=== PATIENT | female | born 1995 | race Caucasian/White ===

== ENCOUNTER → 2016-11-30 01:55 | Observation (INO) ==
[2016-11-29 21:35] LABS: Bilirubin,Urine Negative (Negative); Blood,Urine Negative (Negative); Clarity,Urine Cloudy (Clear); Color,Urine Yellow (Yellow); Glucose,Urine (UA) Normal (Normal); Ketones,Urine >=160 mg/dL (Negative); Leukocyte Esterase,Urine Small (Negative); Nitrite,Urine Negative (Negative); PH,Urine 6.5 pH Units (5.0-8.0); Protein,Urine Trace mg/dL (Neg-Trace); Specific Gravity,Urine 1.019 (1.010-1.025); Urobilinogen,Urine Normal (Normal)
[2016-11-29 21:36] LABS: Bacteria,Urine Few per hpf (None-Few); Hyaline Casts,Urine None Seen per lpf (None-Few); Squamous Epithelial Cell,Urine Many per lpf (None-Few); WBC,Urine 15-30 per hpf (0-3)
[2016-11-29 21:43] LABS: Amphetamine Screen,Urine Negative ng/mL (Cutoff=1000); Barbiturate Screen,Urine Negative ng/mL (Cutoff=200); Benzodiazepines Screen,Urine Negative ng/mL (Cutoff=200); Cannabinoid Screen,Urine Negative ng/mL (Cutoff = 50); Cocaine Screen,Urine Negative ng/mL (Cutoff= 300); Opiate Screen,Urine Negative ng/mL (Cutoff=300); Phencyclidine Screen,Urine Negative ng/mL (Cutoff=25)
[2016-11-29 21:51] LABS: Yeast,Urine Moderate per hpf (None Seen)
[2016-11-29 22:21] LABS: Basophils % 0.2 %; Eosinophils % 0.1 %; Hematocrit 33.2 % (35.3-44.9); Hemoglobin 11.6 g/dL (11.5-15.4); Immature Granulocytes % 0.9 % (0-4); Immature Platelets 2.9 % (1.1-6.1); Lymphocytes # 1.5 K/mcL (0.6-4.6); Lymphocytes % 6.6 %; Mean Corpuscular HGB Conc 34.9 g/dL (31.6-35.5); Mean Corpuscular Hemoglobin 31.8 pg (28.0-33.3); Mean Platelet Volume 9.6 fL (9.4-12.4); Monocytes # 1.8 K/mcL (0.0-1.3); Monocytes % 8.1 %; Neutrophils # 18.5 K/mcL (1.6-8.9); Platelet Count 249 K/mcL (140-400); Red Blood Count 3.65 M/mcL (3.82-4.97); Segmented Neutrophils % 84.1 %
[2016-11-29 22:33] LABS: BUN/Creatinine Ratio 8 (6-26); Calcium 8.9 mg/dL (8.6-10.8); Carbon Dioxide 20 mEq/L (19-29); Chloride 104 mEq/L (98-109); Glucose 78 mg/dL (70-99); Osmolality,Calculated 276 (280-300); Potassium 3.4 mEq/L (3.5-4.5); Sodium 135 mEq/L (136-145); eGFR For African Americans > 60 (> 60); eGFR For Non-African Americans > 60 (> 60)
[2016-11-29 22:34] LABS: Blood Urea Nitrogen 5 mg/dL (7-20)
--- NOTE | 2016-11-30 00:04 | OB/GYN History & Physical ---
Date of Encounter: 11/30/16 Time of Encounter: 23:57 Assessment and Plan (1) 30 weeks gestation of Current visit: Yes Status: Acute NST reassuring for GA (2) Abdominal pain affecting , antepartum Current visit: Yes Status: Acute Severe, intermittent, generalized, abdominal pain. Irregular UC on toco. SVE fingertip x 2 exams. UA without blood. Small leukocytes. 160 ketones. CBC with elevated WBC's 22. No abdominal tenderness to palpation. No CVAT. US completed, results pending. Frequency of pain decreased after IV fluid bolus and procardia. DDx: contractions, gastroenteritis, kidney stone, ovarian torsion, appendicitis Plan: Considering pain has decreased in frequency since fluid bolus and procardia, uterine contractions is most likely cause. Given elevated WBC and severity of pain, will observe throughout the night. If any cervical change is noted will consider [facility] and transfer to [facility]. History of Present Illness Chief complaint: abdominal pain HPI: Ms. Seth is a 21 year old female presenting at 30 weeks with c/o severe, intermittent, abdominal pain. She reports that it feels like someone is squeezing her entire abdomen every few minutes and the pain lasts about a minute when it comes. She also reports "a few" episodes of diarrhea today and some nausea. She was seen in ED 2 days ago for an ear infection for which she has had 2 rounds of antibiotics, a CT scan, and vicodin for pain. [facility] confirms Vicodin 5/325 x 12 tablets. She denies urinary sx, vaginal discharge, itching or burning, LOF, VB, flank pain, fever, chills, or other complaints. Past Med Surg Social Fam HX - Past Medical History Medical history: no medical history Psychiatric history: no psych history - Past Surgical History Surgical History: no surgical history - Social History Smoking Status: Current every day smoker Packs per day: 0.5 Smokeless Tobacco Status: No Alcohol use: none Drug use: none - Family History Mother Living Status: Still Living Hx Family Cardiac Disorders: No Hx Family Respiratory Disorders: No Hx Family Cancer: No Hx Family GI Disorders: No Hx Family Genitourinary Disorders: No Hx Family Endocrine Disorder: No Hx Family Musculoskeletal Disorders: No Hx Family Neuromuscular Disorders: No Hx Family Neurologic Disorders: No Hx Family HEENT Disorders: No Hx Family Autoimmune Disorders: No Hx Family Reproductive Disorders: No Hx Family Psychosocial Disorders: No Hx Family Medical Disorders: No Obstetrical History - Pregnancies : 1 Medications and Allergies Azithromycin [Zithromax] 250 mg PO Q24H #6 tablet 11/25/16 [Rx] Leo/Poly/HC *EAR* SUSP [Cortisporin *EAR* SUSP] 4 drop LEFT EAR QID #1 drops.susp 11/25/16 [Rx] HYDROcodone/Acet 5/325 mg [Bluejacket 5-325 mg] 1 tab PO Q6H PRN #12 tab 11/27/16 [Rx ] HYDROcodone/Acet 5/325 mg [Bluejacket 5-325 mg] 1 tab PO Q6H PRN #12 tab 11/27/16 [Rx ] Ondansetron ODT [Zofran ODT] 4 mg SL Q8HR #12 tab.rapdis 11/27/16 [Rx] Ondansetron ODT [Zofran ODT] 4 mg SL Q8HR #12 tab.rapdis 11/27/16 [Rx] Allergies No Known Allergies Allergy (Verified 11/25/16 22:28) Review of System OB - Constitutional Constitutional ROS IM: no chills, no fever(s) - Respiratory Respiratory: no cough, no dyspnea - Gastrointestinal Gastrointestinal: abdominal pain, diarrhea, nausea - Genitourinary Genitourinary: no difficulty urinating, no dysuria, no flank pain, no genital pruritis, no urinary frequency, no urinary urgency, no vaginal discharge Exam - Constitutional Constitutional: well developed, well nourished, severe distress - HEENT HEENT: Mucus Membranes Moist - Lungs Respiratory exam: CTAB - Cardiovascular Cardiovascular exam: RRR, tachycardia (HR 100-110) - Abdomen Abdomen: Present: gravid, non tender. Absent: diffuse tenderness, guarding noted - Extremities Extremities exam: normal inspection - Vulva Vulva: bilateral: normal - Vagina Vagina: Present: normal moisture - Cervix Dilation: 0 (ft) - Uterus Uterus exam: Absent: tender - Anus/Rectum Anus/Rectum: Present: normal perianal skin - Comments Comments: negative CVAT, Pt intermittently screaming out in pain Results Result Diagrams: 11/29/16 22:05 11/29/16 22:05 Abnormal lab results WBC 22.0 K/mcL (4.3-11.1) H D 11/29/16 22:05 RBC 3.65 M/mcL (3.82-4.97) L 11/29/16 22:05 Hct 33.2 % (35.3-44.9) L 11/29/16 22:05 Neutrophils # 18.5 K/mcL (1.6-8.9) H 11/29/16 22:05 Monocytes # 1.8 K/mcL (0.0-1.3) H 11/29/16 22:05 Sodium 135 mEq/L (136-145) L 11/29/16 22:05 Potassium 3.4 mEq/L (3.5-4.5) L 11/29/16 22:05 BUN 5 mg/dL (7-20) L 11/29/16 22:05 Calculated Osmolality 276 (280-300) L 11/29/16 22:05 Urine Clarity Cloudy (Clear) A 11/29/16 21:20 Urine Ketones >=160 mg/dL (Negative) H 11/29/16 21:20 Ur Leukocyte Esterase Small (Negative) H 11/29/16 21:20 Urine Microscopic RBC 3-5 per hpf (0-3) H 11/29/16 21:20 Urine Microscopic WBC 15-30 per hpf (0-3) H 11/29/16 21:20 Ur Squamous Epith Cells Many per lpf (None-Few) H 11/29/16 21:20 Urine Yeast Moderate per hpf (None Seen) H 11/29/16 21:20 Ur Culture Indicated? YES (NO) A 11/29/16 21:20 All other labs normal. - VTE Reasons for not Prescribing Prophylaxis: Treatment not Indicated - Low risk for VTE
[~2016-11-30 01:55] MED LIST: *HR* Promethazine 25 MG/ML VIAL IVP PRN; Famotidine 20 MG/2 ML VIAL IVP PRN; NIFEdipine 10 MG CAPSULE PO ONE; Ondansetron 4 MG/2 ML VIAL IVP PRN; Ringers Solution, Lactated 1,000 ML IVC ONE; Ringers Solution, Lactated 1,000 ML IVC SCH; Ringers Solution, Lactated 1,000 ML ONE; Terbutaline 1 MG/ML VIAL SQ ONE
== END | disposition left against medical advice (07) ==
LOC: 1NENULAB
PROVIDERS: ADMIT Student in an Organized Health Care Education/Training Program; ATTEND Student in an Organized Health Care Education/Training Program

== ENCOUNTER → 2017-01-19 07:43 | Observation (INO) ==
[2017-01-19 07:34] LABS: Amphetamine Screen,Urine Negative ng/mL (Cutoff=1000); Barbiturate Screen,Urine Negative ng/mL (Cutoff=200); Benzodiazepines Screen,Urine Negative ng/mL (Cutoff=200); Cannabinoid Screen,Urine Negative ng/mL (Cutoff = 50); Cocaine Screen,Urine Negative ng/mL (Cutoff= 300); Opiate Screen,Urine Negative ng/mL (Cutoff=300); Phencyclidine Screen,Urine Negative ng/mL (Cutoff=25)
--- NOTE | 2017-01-19 08:26 | OB/GYN Progress Note ---
Date of Encounter: 01/19/17 Time of Encounter: 08:24 - Assessment and Plan (1) 37 weeks gestation of Status: Acute (2) False labor Status: Acute Remains fingertip dilated on serial cervical exams. Discharged home with education for hydration and when to return to triage. Subjective - Subjective Interval history: Pt with reports of contractions. Took castor oil last night and then has had an onset of abdominal pain and contractions. Reports good movement, denies vaginal bleeding or leaking of fluid. Antepartum ROS: movement normal, contractions, no loss of fluid, no vaginal bleeding Objective - Exam FHR: auscultation normal FHR comments: Baseline 120 Abdomen: Present: normal appearance, soft, gravid Uterus: Present: normal Cervical dilation: Fingertip
== END | disposition home or self-care (01) ==
LOC: 1NENULAB
PROVIDERS: ADMIT Obstetrics & Gynecology; ATTEND Obstetrics & Gynecology

== ENCOUNTER 2017-02-01 10:13 | Inpatient (IN) ==
[~2017-02-01 10:13] MED LIST changes: +*HR* Nalbuphine 20 MG/ML AMPUL IVP PRN; -*HR* Promethazine 25 MG/ML VIAL IVP PRN; -NIFEdipine 10 MG CAPSULE PO ONE; +Naloxone 0.4 MG/ML INJ IVP PRN; -Ringers Solution, Lactated 1,000 ML IVC ONE; -Ringers Solution, Lactated 1,000 ML IVC SCH; -Ringers Solution, Lactated 1,000 ML ONE; -Terbutaline 1 MG/ML VIAL SQ ONE
[2017-02-01] MEDS ORDERED: Ringers Solution, Lactated 1,000 ML IVC SCH ×2 (10:15→15:45)
[2017-02-01] MEDS ORDERED: *HR* Nalbuphine 20 MG/ML AMPUL ONE (10:19)
[2017-02-01 10:28] LABS: Basophils # 0.1 K/mcL (0.0-0.2); Basophils % 0.5 %; Eosinophils # 0.1 K/mcL (0.0-0.6); Eosinophils % 0.4 %; Hematocrit 34.6 % (35.3-44.9); Hemoglobin 11.9 g/dL (11.5-15.4); Immature Granulocytes % 0.4 % (0-4); Lymphocytes # 2.6 K/mcL (0.6-4.6); Lymphocytes % 15.6 %; Mean Corpuscular HGB Conc 34.4 g/dL (31.6-35.5); Mean Corpuscular Hemoglobin 31.1 pg (28.0-33.3); Mean Corpuscular Volume 90.3 fL (83.0-100.0); Monocytes # 1.2 K/mcL (0.0-1.3); Monocytes % 6.9 %; Neutrophils # 12.7 K/mcL (1.6-8.9); Platelet Count 248 K/mcL (140-400); Red Blood Count 3.83 M/mcL (3.82-4.97); Red Cell Distribution Width 13.3 % (11.5-14.5); Segmented Neutrophils % 76.2 %
[2017-02-01] MEDS ORDERED: *HR* FentaNYL (PF) 100 MCG/2 ML VIAL EP ONE (11:21)
[2017-02-01] MEDS ORDERED: EPHEDrine 50 MG/ML VIAL IVP PRN (11:21)
[2017-02-01] MEDS ORDERED: Naloxone 0.4 MG/ML INJ IVP PRN ×2 (11:21→20:21)
[2017-02-01] MEDS ORDERED: Bupivacaine-MPF 0.25% 10 ML VIAL EP ONE (11:21)
--- NOTE | 2017-02-01 11:24 | Anesthesia Evaluation PreOp ---
Date of Encounter: 02/01/17 Time of Encounter: 11:22 - Past History Planned Operation: ZULEMA Cardiac History: Denies any Significant Hx Pulmonary History: Smoker, Pack/yr (5pk/yr) MARGIN TRIMMER History: Denies Any Significant HX Other Medical History: Denies Any Significant HX Anesthesia History: No Prior Anesthetic Complications : Yes Alcohol Use: none Drug use: none Medications and Allergies No Known Home Drugs 01/19/17 [History] 3 Allergy/AdvReac Type Severity Reaction Status Date / Time No Known Allergies Allergy Verified 02/01/17 10:56 - Meds/Allergy Pre-op Review Medications Reviewed: Yes Allergies Reviewed: Yes Beta Blockers on Current Med List: No Anesthesia Results - Labs 02/01/17 10:10 Anesthesia Exam Height: 5'5" Weight: 73.1kg NPO (# of Hours): 4 Pain Scale: 10 (with contractions as stated by patient) Pain Scale Used: Numeric (1 - 10) - HEENT Pupil (Motor): Pupils equal Mallampati: II Teeth: Normal Oral Opening: Greater than 3 - MARGIN TRIMMER LOC: Oriented MARGIN TRIMMER Motor: Normal RUE, Normal LUE, Normal RLE, Normal LLE, Normal Face MARGIN TRIMMER Sensory: Normal: RUE, LUE, RLE, LLE, Face - Cardiac Rhythm: Regular Murmur: None JVD: No Carotid Bruit: No - Pulmonary Breath Sounds: bilateral Clear Respiratory Effort: Symmetrical Anesthesia Assess/Plan ASA Score: 2 Modified Erna Scale for Level of Consciousness: Cooperative, oriented, and tranquil Anesthetic Plan: Regional Autologous Blood: No Monitoring Plan: Standard Monitors Recovery Plan: Other
[2017-02-01] MEDS ORDERED: Epidural Premix (fent/bupiv) 110 ML EP SCH (11:30)
--- NOTE | 2017-02-01 11:34 | Anesthesia Progress Note ---
Date of Encounter: 02/01/17 Time of Encounter: 11:10 Anesthesia Note - Note Note: Pt requesting epidural at dilation of 1cm. Spoke with patient during preoperative assessment regarding optimal window of epidural placement to aid in prevention of potential complications. Pt stated she wanted epidural placement now regardless of potential complication. Pt signed consent knowledgeable of this information. 02/01/17 11:29 Reason for Cancellation: Other
[2017-02-01] MEDS ORDERED: Epidural Premix (fent/bupiv) 110 ML EP ONE (11:35)
[2017-02-01] MEDS ORDERED: *HR* FentaNYL (PF) 100 MCG/2 ML VIAL ONE (11:36)
[2017-02-01] MEDS ORDERED: Bupivacaine-MPF 0.25% 10 ML VIAL ONE ×2 (11:36→11:38)
--- NOTE | 2017-02-01 11:57 | OB/GYN History & Physical ---
Date of Encounter: 02/01/17 Time of Encounter: 11:55 Assessment and Plan (1) 39 weeks gestation of Current visit: Yes Status: Acute (2) Uterine contractions Current visit: Yes Status: Acute Admit to labor and delivery Nubain and epidural as desired GBS negative Cytotec no cervical change Anticipate History of Present Illness HPI: Ms. Seth is a 21 year old female 39+2 weeks gestation presents to labor and delivery by squad with complaints of contractions. Patient states contractions began earlier this morning became intolerable called ambulance for transport to hospital. uncomplicated reports good movement and complains of slight vaginal bleeding earlier when going to the bathroom. Denies leaking of fluid. Labs: O+, rubella immune, GBS negative, all other serologies negative Past Med Surg Social Fam HX - Past Medical History Medical history: no medical history Psychiatric history: no psych history - Past Surgical History Surgical History: no surgical history, other - Social History Smoking Status: Current every day smoker Smokeless Tobacco Status: No Alcohol use: none Drug use: none - Family History Mother History Unknown: Yes Living Status: Still Living Hx Family Cardiac Disorders: No Hx Family Respiratory Disorders: No Hx Family Cancer: No Hx Family GI Disorders: No Hx Family Endocrine Disorder: No Hx Family Neuromuscular Disorders: No Hx Family Neurologic Disorders: No Hx Family HEENT Disorders: No Hx Family Autoimmune Disorders: No Obstetrical History - Pregnancies : 1 Para: 0 Term: 0 : 0 Ab's: 0 Livin Medications and Allergies No Known Home Drugs 01/19/17 [History] 3 Allergy/AdvReac Type Severity Reaction Status Date / Time No Known Allergies Allergy Verified 02/01/17 10:56 Exam - Vital Signs Vital signs: Initial Vital Signs Temp Pulse Resp BP 97.6 F 71 18 122/81 02/01/17 10:45 02/01/17 10:45 02/01/17 10:45 02/01/17 10:45 - Constitutional Constitutional: well developed, well nourished, no acute distress, average body habitus - Neck Neck exam: full ROM - Lungs Respiratory exam: CTAB - Cardiovascular Cardiovascular exam: RRR - Abdomen Abdomen: Present: bowel sounds normal, gravid, non tender - Extremities Extremities exam: normal capillary refill, normal inspection - Cervix Dilation: 1 Effacement: 100 Station: -1 - Uterus Uterus exam: Present: normal size, normal contour Results Result Diagrams: 02/01/17 10:10 Abnormal lab results WBC 16.7 K/mcL (4.3-11.1) H 02/01/17 10:10 Hct 34.6 % (35.3-44.9) L 02/01/17 10:10 Neutrophils # 12.7 K/mcL (1.6-8.9) H 02/01/17 10:10 All other labs normal.
--- NOTE | 2017-02-01 12:21 | Anesthesia Procedures ---
Date of Encounter: 02/01/17 Time of Encounter: 11:44 Procedures: Anesthesia - Epidural/Spinal Patient ID/Chart reviewed: Yes Patient examined: Yes OB Eval: Gestational age: 39 OB Eval: : 1 OB Eval: Hx Para: 0 OB Eval: Dilated at (cm): 1 OB Eval: Contractions: Non-stressed pattern Consent Obtained: Yes Supplemental Oxygen: None/Room Air Site Prep: Aseptic Technique, Sterile prep and drape, Povidone-Iodine 1% Patient position: upright Local Anesthetic: Lidocaine 1% Amount of Local Anesthetic used: 3 Touhy Needle Gauge: 18 Touhy Needle Depth (cm): 6 Catheter Depth at Skin (cm): 15 Test Dose (1.5% Lido + Epi): Volume given (mls): 3 Test Dose Result: Negative Loading Dose: 0.25% Marcaine (mls): 10 Loading Dose: Fentanyl (mcg): 100 Loading Dose Administered: Thru Catheter Infusion Med: 0.125% Bupivacaine w/ 2 mcg/ml Fentanyl Infusion Rate (mls/hr): [address]: Tegaderm, Tape Interspace Used: L4-L5 Loss of Resistance (NORM): Yes Blood: No CSF: No Paresthesia: No Procedure: ZULEMA placed 1st pass in upright position without any immediate noted complications. VSS throughout. FHT 120s throughout Vitals + FHT's: 1144 BP 126/89 P 93 R 20 1210 BP 118/69 R 16 P 71
--- NOTE | 2017-02-01 12:45 | OB Labor Progress Note ---
Date of Encounter: 02/01/17 Time of Encounter: 12:43 Labor Progress Note - Subjective Subjective: Pt now resting comfortable with epidural - Cervix Cervix: 5/100/-1 - Heart Tones Heart Tones: 115/moderate/+accel Discussed with Dr. Martinez concern for variabilty pattern. Dr. Martinez reviewed tracing feels it is moderate variability. - [place]: 2-4 minutes - Interventions Interventions: SROM during exam for thick meconium - Plan Plan: Making cervical change Anticipate . Alert nursery to meconium
[2017-02-01 14:07] LABS: Amphetamine Screen,Urine Negative ng/mL (Cutoff=1000); Barbiturate Screen,Urine Negative ng/mL (Cutoff=200); Benzodiazepines Screen,Urine Negative ng/mL (Cutoff=200); Cannabinoid Screen,Urine Negative ng/mL (Cutoff = 50); Cocaine Screen,Urine Negative ng/mL (Cutoff= 300); Opiate Screen,Urine Negative ng/mL (Cutoff=300); Phencyclidine Screen,Urine Negative ng/mL (Cutoff=25)
[2017-02-01] MEDS ORDERED: Terbutaline 1 MG/ML VIAL SQ ONE (14:10)
[2017-02-01] MEDS ORDERED: Ringers Solution, Lactated 1,000 ML ONE ×2 (14:22→14:57)
[2017-02-01] MEDS ORDERED: CeFAZolin Pre 2,000 MG/100 ML 2,000 MG/100 ML BAG IVPB ONE (14:25)
[2017-02-01] MEDS ORDERED: Metoclopramide 10 MG/2 ML VIAL IVP ONE (14:25)
[2017-02-01] MEDS ORDERED: Chloroprocaine/PF 20 ML VIAL INFILT ONE (14:27)
[2017-02-01] MEDS ORDERED: Ondansetron 4 MG/2 ML VIAL ONE (14:36)
[2017-02-01] MEDS ORDERED: *HR* Phenylephrine 10 MG/ML VIAL ONE (14:44)
[2017-02-01] MEDS ORDERED: *HR* Oxytocin 10 UNIT/ML VIAL IM ONE (14:55)
[2017-02-01] MEDS ORDERED: Ketamine *HR* 500 MG/10 ML MDV ONE (15:00)
[2017-02-01] MEDS ORDERED: *HR* Midazolam HCl 2 MG/2 ML VIAL ONE (15:01)
[2017-02-01] MEDS ORDERED: *HR* Morphine Sulfate/PF 5 MG/10 ML AMPUL ONE (15:03)
[2017-02-01] MEDS ORDERED: *HR* Promethazine 25 MG/ML VIAL IVP PRN (15:36)
[2017-02-01] MEDS ORDERED: Ondansetron 4 MG/2 ML VIAL IVP ONE (15:36)
[2017-02-01] MEDS ORDERED: *HR* Meperidine 25 MG/ML SYRINGE IVP PRN (15:36)
[2017-02-01] MEDS ORDERED: Oxytocin 20 units/ LR 1000 mL 20 UNIT/1,000 ML BAG IVC ONE (16:35)
[2017-02-01] MEDS: *HR* HYDROmorphone (PF) 1 MG/ML SYRINGE IVP PRN ×4 (16:51→18:36)
--- NOTE | 2017-02-01 17:37 | Anesthesia Evaluation Post Op ---
Date of Encounter: 02/01/17 Time of Encounter: 17:35 - Vital Signs Vital Signs: BP 123/70 R 16 P 78 Spo2 98 - Lungs Lungs: Clear Ascult./Percussion - Airway Airway: Non-obstructed - Cardiovascular Regular Rate - Mental Status Mental Status: Alert & Oriented, Answers Appropriately - Pain Pain Scale: 4 Pain Scale used: Numeric (1 - 10) - Nausea Vomiting Nausea Vomiting: Not Present - Hydration Hydration: NPO, Lane catheter - Discharge PostOp Status: Transfer Patient to floor
--- NOTE | 2017-02-01 17:39 | OB/GYN Procedure Note ---
Section - Date of procedure: 02/01/17 Preop diagnosis: category 2 FHT tracing Post-op diagnosis: same Procedure: primary low transverse Surgeon: Mikayla Martinez Estimated blood loss (cc): 600 Tax Consultant: Kkoi Mcintyre [employer] Can[employer] Fabricator: Km Sanchez Anesthesia Type: Epidural section complications: none Disposition: L&D Recovery Room Specimens: Cord segment, Cord gasses - Infant (s) Infant A Infant Delivery Date: 02/01/17 Infant Delivery Time: 14:58 Presentation: vertex Gender: Male Viability: Viable Pounds: 7 Ounces: 0 Gram Weight: 3.18 kg at 1 minute: 8 at 5 minutes: 9 Specimens collected: cord blood, venous cord gases, arterial cord gases (7.26 pH ) Placenta: spontaneous, partial extraction Cord: 3 umbilical vessels - Narrative Narrative: Patient had already been taken to the OR for category 2 heart rate tracing which resolved. She then had another decel with return to baseline at 6 cm. Spoke to patient who had meconium stained fluid and remote from complete dilation. Verbal consent to proceed with prep for section. She was then prepped and draped in normal sterile fashion in the dorsal supine position. Timeout was then performed. Antibiotics were given at room time. SCDs are on and active. Pfannenstiel skin incision is then made and carried through to underlying layer of fascia with the Bovie. The fascia was then incised in the midline and incision extended laterally with the Elliott scissors. The fascia was tented up and dissected off the rectus muscles sharply. The rectus muscles were in the midline and the peritoneum was tented up and entered sharply with the Metzenbaum scissors. The peritoneal incision was then extended bluntly. The bladder blade was then inserted. A low transverse uterine incision was then made. The head was brought to the incision and the was delivered using fundal pressure. There was no nuchal cord. Cord was clamped and cut. was handed to waiting nursery staff. Placenta delivered spontaneously complete and intact with a three-vessel cord. The uterus was cleared of all clots and debris using moist laparotomy sponge. The uterine incision was then closed using 0 Vicryl in a running locked fashion. A second layer of the same suture was used to obtain excellent hemostasis. The abdomen was then cleared of all clots and debris using copious irrigation. A piece of Intercede was placed over the uterine incision and over the anterior uterine serosa. The fascial incision was then closed using 0 Vicryl in a running fashion. The skin was closed using 4-0 Vicryl in a subcuticular fashion. Steri-Strips and sterile dressing are then placed. Mother and taken to recovery in stable condition.
[2017-02-01] MEDS ORDERED: Oxytocin 20 units/ LR 1000 mL 20 UNIT/1,000 ML BAG IVC SCH ×2 (20:21)
[2017-02-01] MEDS ORDERED: *HR* Morphine 2 MG/ML SYRINGE IVP PRN (20:21)
[2017-02-01] MEDS ORDERED: Measles/Mumps/Rubella Vacc 0.5 ML VIAL SQ ONE (20:21)
[2017-02-01] MEDS ORDERED: Sennosides 8.6 MG TABLET PO PRN (20:21)
[2017-02-01] MEDS ORDERED: *HR* HYDROmorphone (PF) 1 MG/ML SYRINGE IVP PRN (20:21)
[2017-02-01] MEDS ORDERED: Metoclopramide 10 MG/2 ML VIAL IVP PRN (20:21)
[2017-02-01] MEDS ORDERED: Ondansetron 4 MG/2 ML VIAL IVP PRN ×2 (20:21)
[2017-02-01] MEDS ORDERED: Acetaminophen 325 MG TABLET PO PRN (20:21)
[2017-02-01] MEDS: *HR* OxyCODONE/APAP 5/325 TABLET PO PRN (23:35)
[2017-02-02 04:51] LABS: Basophils % 0.3 %; Eosinophils % 0.2 %; Hematocrit 24.7 % (35.3-44.9); Immature Granulocytes % 0.6 % (0-4); Lymphocytes # 1.5 K/mcL (0.6-4.6); Lymphocytes % 12.3 %; Mean Corpuscular Hemoglobin 30.5 pg (28.0-33.3); Mean Corpuscular Volume 89.8 fL (83.0-100.0); Mean Platelet Volume 9.6 fL (9.4-12.4); Monocytes # 0.8 K/mcL (0.0-1.3); Monocytes % 6.6 %; Neutrophils # 9.6 K/mcL (1.6-8.9); Platelet Count 181 K/mcL (140-400); Red Blood Count 2.75 M/mcL (3.82-4.97); Red Cell Distribution Width 13.3 % (11.5-14.5)
[2017-02-02 04:52] LABS: Hemoglobin 8.4 g/dL (11.5-15.4)
[2017-02-02] MEDS: cephALEXin 500 MG CAPSULE PO SCH ×4 (06:32→21:23)
[2017-02-02] MEDS: Ibuprofen 600 MG TABLET PO PRN ×3 (06:36→21:23)
[2017-02-02] MEDS: *HR* OxyCODONE/APAP 5/325 TABLET PO PRN ×4 (06:36→21:23)
[2017-02-02] MEDS: Azithromycin 250 MG TABLET PO SCH (08:10)
[2017-02-02] MEDS: Prenatal Vit/FA 1 EACH TABLET PO SCH (08:10)
--- NOTE | 2017-02-02 08:53 | OB/GYN Progress Note ---
Date of Encounter: 02/02/17 Time of Encounter: 08:51 - Assessment and Plan (1) Status post primary low transverse section Current Visit: Yes Status: Acute Routine /postop care Anticipate discharge tomorrow. (2) anemia Current Visit: Yes Status: Acute Increase Ferrous Sulfate to bid. Subjective - Subjective Principal diagnosis: Status post primary c/s Interval history: Pt sitting up in bed style. States she feels well. Reports light bleeding , denies nausea & vomiting. Patient caring appropriately for infant. Reports some spasms while emptying bladder. Instructed to empty bladder every 2 hours to prevent over distention. Patient reports: appetite normal, voiding normally, pain well controlled, ambulating normally : doing well, bottle feeding Objective - Vital Signs Latest vital signs: Vital Signs Temp Pulse Pulse Resp BP Pulse Ox 02/02/17 03:15 97.7 F 85 16 113/71 98 02/01/17 23:20 98.7 F 79 79 14 109/68 02/01/17 20:00 90 90 15 100 02/01/17 19:35 98.2 F 88 14 110/70 97 02/01/17 19:30 98.6 F 89 79 16 120/76 98 02/01/17 19:00 98.6 F 89 89 16 118/70 97 02/01/17 18:30 80 14 02/01/17 10:45 97.6 F 71 18 122/81 Intake and Output 02/01/17 02/02/17 02/02/17 23:59 07:59 15:59 Intake Total 240 / 240 Output Total 1050 / 1050 1150 / 1150 400 / 400 Balance -1050 / -1050 -910 / -910 -400 / -400 Intake: Oral 240 / 240 Output: Urine 400 / 400 Catheter 1050 / 1050 1150 / 1150 Other: Stool Characteristics Normal for Patient Weight 72.5 kg 71.804 kg Patient Weight 02/02/17 23:59 Weight 71.804 kg - Exam Lungs: bilateral: normal Chest: Normal S1, Normal S2 Extremities: Present: normal Abdomen: Present: normal appearance, soft Incision: Present: dressed (Dressing dry and intact) Uterus: Present: normal, firm Fundal Height: 1 (u/1) - Labs Labs: Laboratory Results - last 24 hr 10/18/17 10/18/17 10/19/17 10:10 12:45 04:38 WBC 16.7 H 12.0 H RBC 3.83 2.75 L Hgb 11.9 8.4 L D Hct 34.6 L 24.7 L MCV 90.3 89.8 MCH 31.1 30.5 MCHC 34.4 34.0 RDW 13.3 13.3 Plt Count 248 181 MPV 10.0 9.6 Immature Gran % 0.4 0.6 Seg Neutrophils % 76.2 80.0 Lymphocytes % 15.6 12.3 Monocytes % 6.9 6.6 Eosinophils % 0.4 0.2 Basophils % 0.5 0.3 Neutrophils # 12.7 H 9.6 H Lymphocytes # 2.6 1.5 Monocytes # 1.2 0.8 Eosinophils # 0.1 0.0 Basophils # 0.1 0.0 Urine Opiates Screen Negative Ur Barbiturates Screen Negative Ur Phencyclidine Scrn Negative Ur Amphetamines Screen Negative U Benzodiazepines Scrn Negative Urine Cocaine Screen Negative U Marijuana (THC) Screen Negative
[2017-02-02] MEDS: Simethicone 80 MG TAB.CHEW PO PRN (15:28)
[2017-02-03] MEDS: Ibuprofen 600 MG TABLET PO PRN (04:21)
[2017-02-03] MEDS: *HR* OxyCODONE/APAP 5/325 TABLET PO PRN (04:21)
[2017-02-03] MEDS: Simethicone 80 MG TAB.CHEW PO PRN (07:55)
[2017-02-03] MEDS: cephALEXin 500 MG CAPSULE PO SCH (07:55)
[2017-02-03] MEDS: Prenatal Vit/FA 1 EACH TABLET PO SCH (07:55)
[2017-02-03] MEDS: Azithromycin 250 MG TABLET PO SCH (07:55)
--- NOTE | 2017-02-03 08:11 | Discharge Summary ---
Date of Encounter: 02/03/17 Time of Encounter: 07:55 - Discharge Diagnosis (1) Status post Priority: Primary Status: Acute Comments: Doing well s/p CS day 2. Pain is well controlled Bottle feeding VSS Lochia is light and w/o clots. Tolerating regular diet, voiding and passing flatus without difficulty. Discharge home today. (2) 39 weeks gestation of Priority: Secondary Status: Resolved (3) anemia Priority: Primary Status: Acute Comments: VSS, Asymptomatic - Discharge Medications Prescriptions: Ibuprofen [Motrin] 600 mg PO Q6HR PRN #60 tablet PRN Reason: Cramping OxyCODONE/APAP 5/325 [Percocet 5/325 MG] 1 each PO Q6HR PRN #20 tablet PRN Reason: Moderate pain 4-6 Azithromycin [Zithromax] 500 mg PO DAILY #3 tablet cephALEXin [Keflex] 500 mg PO TID #15 capsule Docusate [Colace] 100 mg PO BID #30 capsule Ferrous Sulfate 325 mg PO BID #60 tablet Vit/FA 1 each PO DAILY #30 tablet Home Medications: Azithromycin [Zithromax] 500 mg PO DAILY #3 tablet 02/03/17 [Rx] Docusate [Colace] 100 mg PO BID #30 capsule 02/03/17 [Rx] Ferrous Sulfate 325 mg PO BID #60 tablet 02/03/17 [Rx] Ibuprofen [Motrin] 600 mg PO Q6HR PRN #60 tablet 02/03/17 [Rx] OxyCODONE/APAP 5/325 [Percocet 5/325 MG] 1 each PO Q6HR PRN #20 tablet 02/03/17 [Rx] Vit/FA 1 each PO DAILY #30 tablet 02/03/17 [Rx] cephALEXin [Keflex] 500 mg PO TID #15 capsule 02/03/17 [Rx] Allergies/Adverse Reactions: 3 Allergy/AdvReac Type Severity Reaction Status Date / Time No Known Allergies Allergy Verified 02/01/17 10:56 Data Procedures and tests throughout hospitalization: Laboratory Tests 02/01/17 02/01/17 02/02/17 10:10 12:45 04:38 WBC 16.7 H 12.0 H RBC 3.83 2.75 L Hgb 11.9 8.4 L D Hct 34.6 L 24.7 L MCV 90.3 89.8 MCH 31.1 30.5 MCHC 34.4 34.0 RDW 13.3 13.3 Plt Count 248 181 MPV 10.0 9.6 Immature Gran % 0.4 0.6 Seg Neutrophils % 76.2 80.0 Lymphocytes % 15.6 12.3 Monocytes % 6.9 6.6 Eosinophils % 0.4 0.2 Basophils % 0.5 0.3 Neutrophils # 12.7 H 9.6 H Lymphocytes # 2.6 1.5 Monocytes # 1.2 0.8 Eosinophils # 0.1 0.0 Basophils # 0.1 0.0 Urine Opiates Screen Negative Ur Barbiturates Screen Negative Ur Phencyclidine Scrn Negative Ur Amphetamines Screen Negative U Benzodiazepines Scrn Negative Urine Cocaine Screen Negative U Marijuana (THC) Screen Negative Date of admission: 02/01/17 10:13 Primary care physician: PCP NONE Consults: 02/01/17 20:21 Consult to [facility] ([facility]&C) [CONS] Routine Reason For Exam: Reason for SW Consult: please evaluate Discharging clinician: Arnaud Arreola Anticipated date of discharge: 02/03/17 - Patient Status Disposition: Home, Self-Care Condition: Good Functional capacity at discharge: independent ambulation Overall status at discharge: patient is progressing back to baseline - Discharge Instructions Follow Up With: NONE,PCP [Primary Care Provider] - Additional Instructions: Perineal Care: Always wipe front to back Change your pad frequently Use your geovani bottle with warm water and spray front to back Do not douche, use tampons, have sexual intercourse or put anything in your vagina for 4-6 weeks after delivery Bleeding: Vaginal bleeding can last up to 6 weeks Your menstrual period may return as early as 6 weeks after you are discharged from the hospital [place]/Stitches Care: Vaginal Delivery Vaginal stitches will dissolve within 4-6 weeks Follow perineal care instructions Care Stitches will dissolve on their own If you have enrico, they will need to be removed in the doctors office within 5-7 days. You may shower with stitches or enrico Drip plan or soapy water over the incision to clean. Pat dry gently with a clean towel. Make sure you completely dry under the skin folds DO NOT USE powders, lotions, rubbing alcohol or hydrogen peroxide on or around your incision. This will slow your wound healing It is normal to have soreness, burning, tingling, itchiness and/or numbness as your incision heals Activity: Rest frequently Do not lift anything heavier than a gallon of milk, up to 10-15 pounds No driving for 1-2 weeks for Vaginal delivery No driving for 2-4 weeks for delivery Take stairs slowly, one at a time Gradually increase your daily activity until you are back to your normal routine Do not exercise until you have had your follow-up appointment Bathing: Take a shower daily Do not take a tub bath for the first 4 weeks Diet: Drink plenty of water and fruit juices Eat a well-balanced diet with foods high in fiber such as fruits and vegetables Depression: Your hormones have a major impact on your feelings and emotions. Hormone imbalance may cause changes in your mood, creating unfamiliar thoughts and actions. Support is available to help you understand and cope with these feelings and mood changes. If you answer yes to any of the following questions, please call your health care provider: Are you having trouble sleeping? Are you feeling isolated? Have you lost your appetite? Are you having thoughts of hurting yourself or others? WARNING SIGNS: Heavy bleeding from the vagina (blood is bright red and soaks a sanitary pad in an hour or less.) Passing a blood clot larger than your fist Discharge from the vagina that has a bad odor Temperature over 100.4 F, or if you feel cold and have chills An episiotomy site that is warm, swollen or oozing. Use a mirror if needed Urination (pee) that is painful, very red and swollen or leaking fluid An incision that is painful, very red and swollen and leaking fluid An incision that has come open Breasts that are painful or full with flu like symptoms Redness, warmth or swelling in the calf of your leg Trouble breathing, dizziness, visual disturbance or faintness *Notify your health care provider immediately or go to the nearest Emergency Room if you experience any of the above signs.* To contact the nurses station 24 hours a day, For non-urgent, routine questions, please call the office at - Diet and Activity Activity: resume usual activities as tolerated Diet: regular diet Hospital Course Reason for admission: active labor Delivery: section Episiotomy: none Laceration: none Other procedures: none complications: none Discharge diagnosis: IUP at term delivered [place] baby: male Hospital course: Ms. Seth is a 21 year old female that presented at 39+2 weeks gestation presents to labor and delivery by squad with complaints of contractions. Patient states contractions began earlier this morning became intolerable called ambulance for transport to hospital. Patient had already been taken to the OR for category 2 heart rate tracing which resolved. She then had another decel with return to baseline at 6 cm. Spoke to patient who had meconium stained fluid and remote from complete dilation. Verbal consent to proceed with prep for section. She was then prepped and draped in normal sterile fashion in the dorsal supine position. Timeout was then performed. Antibiotics were given at room time. SCDs are on and active. Pfannenstiel skin incision is then made and carried through to underlying layer of fascia with the Bovie. The fascia was then incised in the midline and incision extended laterally with the Elliott scissors. The fascia was tented up and dissected off the rectus muscles sharply. The rectus muscles were in the midline and the peritoneum was tented up and entered sharply with the Metzenbaum scissors. The peritoneal incision was then extended bluntly. The bladder blade was then inserted. A low transverse uterine incision was then made. The infant head was brought to the incision and the was delivered using fundal pressure. There was no nuchal cord. Cord was clamped and cut. Infant was handed to waiting nursery staff. Placenta delivered spontaneously complete and intact with a three-vessel cord. The uterus was cleared of all clots and debris using moist laparotomy sponge. The uterine incision was then closed using 0 Vicryl in a running locked fashion. A second layer of the same suture was used to obtain excellent hemostasis. The abdomen was then cleared of all clots and debris using copious irrigation. A piece of Intercede was placed over the uterine incision and over the anterior uterine serosa. The fascial incision was then closed using 0 Vicryl in a running fashion. The skin was closed using 4-0 Vicryl in a subcuticular fashion. Steri-Strips and sterile dressing are then placed. Mother and taken to recovery in stable condition. When seen today, patient says that she is in good mood and the baby is doing fine. She says she is bottle feeding the baby as a preference. The benefits of breast feeding were discussed with the patient, but she was intent on bottle feeding. She says her vaginal bleeding is light, but has remained the same since the procedure. She admits to minor abdominal discomfort. She denies any fever, nausea, vomiting, headaches, vision changes, lihgt-headedness, dizziness , chest pain, or shortness of breath. Patient will continue her course of azithromycin for a total course of 5 days and keflex for a total course of 7 days. She has a follow-up appointment with Dr. Martinez on 02/17/17 - Date of procedure: 02/01/17 Preop diagnosis: category 2 FHT tracing Post-op diagnosis: same Procedure: primary low transverse Surgeon: Mikayla Martinez Estimated blood loss (cc): 600 Forensic Social Worker: Koki Mcintyre Director Of Property Management: Km Sanchez Anesthesia Type: Epidural section complications: none Disposition: L&D Recovery Room Specimens: Cord segment, Cord gasses - Infant (s) Infant A Delivery Date: 02/01/17 Delivery Time: 14:58 Presentation: vertex Gender: Male Viability: Viable Pounds: 7 Ounces: 0 Gram Weight: 3.18 kg at 1 minute: 8 at 5 minutes: 9 Specimens collected: cord blood, venous cord gases, arterial cord gases (7.26 pH ) Placenta: spontaneous, partial extraction Cord: 3 umbilical vessels Time Attestation: Total time spent providing and/or coordinating discharge services: Time Spent: Less than 30 minutes - VTE Documentation of Mechanical Device: Intermittent pneumatic compression device - Attending Attestation I examined this patient and my medical decision-making was reviewed with the Resident Physician. I agree with the documented findings, disposition and treatment plan as described. Daquan Bruce CNM Exam - Constitutional Vitals: Temp Pulse Resp BP Pulse Ox 98.5 F 107 17 118/68 97 02/02/17 19:46 02/02/17 19:46 02/02/17 19:46 02/02/17 19:46 02/02/17 19:46 General appearance IM: A&O X 3, pleasant, no acute distress, answers questions appropriately - Respiratory Respiratory exam: Present: CTAB - Cardiovascular Cardiovascular exam IM: Present: RRR, +S1, +S2 - GI/Abdominal GI/Abdominal exam IM: normal bowel sounds, soft Incision: normal, dry, intact - Uterine Tone: Firm - Extremities Exam Extremities exam IM: Present: full ROM, normal capillary refill, normal inspection, radial pulses palpable and symmetrical. Absent: pedal edema - Neurological Exam Neurological exam: reflexes normal
[2017-02-03 08:24] VITALS: BP 114/61
== END 2017-02-03 13:13 | disposition home or self-care (01) | DRG 540 ==
LOC: 1NENULAB → 1NENUOBS 19:35
PROVIDERS: ADMIT Obstetrics & Gynecology; ATTEND Obstetrics & Gynecology

== ENCOUNTER 2018-12-03 16:46 | Inpatient (IN) ==
[2018-12-03 17:26] LABS: Bilirubin,Urine Negative (Negative); Blood,Urine Negative (Negative); Clarity,Urine Clear (Clear); Color,Urine Yellow (Yellow); Glucose,Urine (UA) Normal (Normal); Ketones,Urine Negative (Negative); Leukocyte Esterase,Urine Negative (Negative); Nitrite,Urine Negative (Negative); PH,Urine 6.5 pH Units (5.0-8.0); Protein,Urine Trace mg/dL (Neg-Trace); Specific Gravity,Urine 1.023 (1.010-1.025); Urobilinogen,Urine Normal (Normal)
[2018-12-03 17:36] LABS: Amphetamine Screen,Urine Negative ng/mL (Cutoff=1000); Barbiturate Screen,Urine Negative ng/mL (Cutoff=200); Benzodiazepines Screen,Urine Negative ng/mL (Cutoff=200); Cannabinoid Screen,Urine Negative ng/mL (Cutoff = 50); Cocaine Screen,Urine Negative ng/mL (Cutoff= 300); Opiate Screen,Urine Negative ng/mL (Cutoff=300); Phencyclidine Screen,Urine Negative ng/mL (Cutoff=25)
[2018-12-03 18:03] LABS: Basophils # 0.1 K/mcL (0.0-0.2); Basophils % 0.7 %; Eosinophils % 0.3 %; Hematocrit 43.4 % (35.3-44.9); Hemoglobin 13.9 g/dL (11.5-15.4); Immature Granulocytes % 0.3 % (0-4); Lymphocytes # 2.2 K/mcL (0.6-4.6); Lymphocytes % 19.1 %; Mean Corpuscular Hemoglobin 27.1 pg (28.0-33.3); Mean Corpuscular Volume 84.8 fL (83.0-100.0); Monocytes # 0.7 K/mcL (0.0-1.3); Monocytes % 6.1 %; Neutrophils # 8.3 K/mcL (1.6-8.9); Platelet Count 361 K/mcL (140-400); Red Blood Count 5.12 M/mcL (3.82-4.97); Red Cell Distribution Width 14.4 % (11.5-14.5); Segmented Neutrophils % 73.5 %; White Blood Count 11.3 K/mcL (4.3-11.1)
[2018-12-03 18:16] LABS: Acetaminophen < 10 mcg/mL (10-20); BUN/Creatinine Ratio 20 (6-26); Blood Urea Nitrogen 13 mg/dL (6-20); Calcium 9.7 mg/dL (8.6-10.3); Carbon Dioxide 26 mEq/L (23-29); Chloride 106 mEq/L (98-107); Ethanol < 10 mg/dL (Less than 10); Glucose 130 mg/dL (70-105); Osmolality,Calculated 288 (280-300); Potassium 3.7 mEq/L (3.5-5.1); Salicylate < 2.5 mg/dL (15.0-30.0); Sodium 138 mEq/L (136-145); eGFR For African Americans > 60 (> 60); eGFR For Non-African Americans > 60 (> 60)
[2018-12-03 18:29] LABS: Thyroid Stimulating Hormone 0.997 mcIU/mL (0.340-5.600)
[2018-12-03] MEDS ORDERED: Ibuprofen 400 MG TABLET PO PRN (20:56)
[2018-12-03] MEDS ORDERED: Haloperidol Lactate 5 MG/ML VIAL IM PRN (20:56)
[2018-12-03] MEDS ORDERED: Mag Hydrox/Al Hydrox/Simeth 30 ML UDC PO PRN (20:56)
[2018-12-03] MEDS ORDERED: *HR* LORazepam 1 MG TABLET PO PRN (20:56)
[2018-12-03] MEDS ORDERED: MOM Conc 10 ML UD.LIQ PO PRN (20:56)
[2018-12-03] MEDS ORDERED: hydrOXYzine pamoate 25 MG CAPSULE PO PRN (20:56)
[2018-12-03] MEDS ORDERED: *HR* LORazepam 2 MG/ML VIAL IM PRN (20:56)
[2018-12-03] MEDS ORDERED: Nicotine 2 MG GUM BC PRN (21:29)
[2018-12-04] MEDS: Lurasidone 20 MG TABLET PO SCH (10:48)
[2018-12-04] MEDS: traZODone 50 MG TABLET PO PRN (20:28)
[2018-12-05] MEDS: Lurasidone 20 MG TABLET PO SCH (09:32)
[2018-12-05] MEDS: Nicotine 21 MG PATCH.TD24 TD SCH (11:11)
[2018-12-05] MEDS: traZODone 50 MG TABLET PO PRN (20:43)
[2018-12-06 08:27] LABS: Chol/HDL Ratio 2.9 (0-4.9)
[2018-12-06] MEDS: Lurasidone 20 MG TABLET PO SCH (09:48)
[2018-12-06] MEDS: Nicotine 21 MG PATCH.TD24 TD SCH (09:48)
[2018-12-06 10:23] VITALS: BP 117/59
[2018-12-06 10:38] LABS: Estimated Average Glucose 108 mg/dl
== END 2018-12-06 16:09 | disposition home or self-care (01) | DRG 753 ==
LOC: EMEROOARM 16:46 → 1ANU 20:49
PROVIDERS: ADMIT Psychiatry & Neurology Psychiatry; ATTEND Psychiatry & Neurology Psychiatry